=== PATIENT | female | born 1940 | race Caucasian/White ===

== ENCOUNTER 2018-07-25 12:15 | Emergency (ER) | payer OTHER ==
[~2018-07-25] VITALS: Ht 152.4 cm; Wt 83.9 kg
[2018-07-25] MEDS ORDERED: LOSARTAN POTASS25 MG (12:37)
[2018-07-25] MEDS ORDERED: CATAPRES0.1 MG (12:37)
[2018-07-25] MEDS ORDERED: LEVO-T25 MCG (12:38)
[2018-07-25] MEDS ORDERED: SIMVASTATIN40 MG (12:38)
[2018-07-25] MEDS ORDERED: METOPROLOL SUCC25 MG (12:38)
[2018-07-25] MEDS ORDERED: CITALOPRAM HBR20 MG (12:38)
== END 2018-07-25 15:50 | disposition home or self-care (01) ==
LOC: ER 12:15
DX: S83.8X2A Sprain of other specified parts of left knee, initial encounter (principal); M25.562 Pain in left knee; X50.0XXA Overexertion from strenuous movement or load, initial encounter; Y93.B2 Activity, push-ups, pull-ups, sit-ups; Y92.89 Other specified places as the place of occurrence of the external cause; Y99.8 Other external cause status